=== PATIENT | male | born 1935 | race Caucasian/White ===

== ENCOUNTER → 2018-03-25 | Outpatient (CLI) | payer MEDICARE ==
[~2018-03-25] MED LIST: AMLO5TAB7; AMLO5TAB7 PO; ASP325T PO; ATEN50TA PO; ATOR40TA70 PO; CLN.1T PO; FINA5TAB6 PO; HCT25T PO; HYDR25TA4 PO; LEVO500T69 PO; LISI40TA PO; MULT-35 PO; MULT-608 PO; OMEG1CAP51 PO; OMG1KC PO; PHEN200T27 PO; SIMV40TA2 PO; TAMS0.4C2 PO; TMSL.4C PO
--- NOTE | 2018-03-25 10:01 | Diagnostic Imaging Report ---
CLINICAL INDICATION: Patient with abdominal aortic aneurysm. EXAM: Ultrasound of the abdominal aorta. COMPARISON STUDY: CT Angiogram of the abdomen and pelvis dated 11/07/2017. FINDINGS: The abdominal aorta has irregular wall contour likely from atherosclerotic disease. The maximum AP and transverse dimensions for the proximal and distal abdominal aorta are 2.1 cm x 2.4 cm and 2.4 cm x 2.2 cm, respectively. There is a mid to distal infrarenal abdominal aortic aneurysm which measures 3.7 cm x 3.8 cm (AP x Trans) and measures at least 7 cm in craniocaudal dimensions. Of note, this aneurysm measures 4.3 cm in greatest axial dimension on the comparison CT angiogram. The bilateral common iliac arteries were obscured by bowel gas and not able to be evaluated on this exam. IMPRESSION: Infrarenal mid to distal infrarenal abdominal aortic aneurysm. Dictated by: Dictated on workstation # [id number]
== END ==
LOC: RAD 08:44
PROVIDERS: ATTEND Physician Assistant
DX: I71.4 Abdominal aortic aneurysm, without rupture (principal); I65.23 Occlusion and stenosis of bilateral carotid arteries; I10 Essential (primary) hypertension; E78.2 Mixed hyperlipidemia; I70.1 Atherosclerosis of renal artery
CPT/HCPCS: 76775

== ENCOUNTER → 2018-10-24 | Outpatient (CLI) | payer MEDICARE ==
[~2018-10-24] MED LIST changes: -AMLO5TAB7; -AMLO5TAB7 PO; +AMLO5TAB9; +AMLO5TAB9 PO
== END ==
LOC: CARD 12:54
PROVIDERS: ATTEND Physician Assistant
DX: I71.4 Abdominal aortic aneurysm, without rupture (principal); I65.29 Occlusion and stenosis of unspecified carotid artery; I10 Essential (primary) hypertension; E78.5 Hyperlipidemia, unspecified; I27.20 Pulmonary hypertension, unspecified; I34.0 Nonrheumatic mitral (valve) insufficiency
CPT/HCPCS: 93306

== ENCOUNTER → 2018-10-29 | Outpatient (CLI) | payer MEDICARE ==
[~2018-10-29] VITALS: Ht 190.5 cm; Wt 90.7 kg
[~2018-10-29] MED LIST changes: +CATHETER FLUSH 10 ML SYR IV PRN; +REGADENOSON 0.4 MG/5 ML SYR (LEXISCAN) IV ONE
[2018-10-29 09:14] VITALS: BP 172/118
[2018-10-29 09:15] VITALS: BP 147/77
--- NOTE | 2018-10-29 11:57 | STRESS TEST ---
DATE OF SERVICE: 10/29/2018 LEXISCAN MYOVIEW STRESS TEST REPORT REFERRING PHYSICIAN: Dr. Diop. Baseline heart rate is 89 and baseline blood pressure is 145/94. Baseline EKG is atrial fibrillation with no ischemic changes. In summary, the patient was injected with 10.47 mCi of technetium-99 Myoview and the resting images were obtained. Then, the patient received 0.4 mg of Lexiscan followed by 30.0 mCi of technetium-99 Myoview. Throughout the test, there were no EKG changes. The resting and stress images were reviewed and compared in the short axis, horizontal long axis and vertical long axis views. Review of the images showed diaphragmatic attenuation with typical male pattern with no significant ischemia or infarction. SSS is 1, SDS 1 and TID value 1.01. On the gated images, the left ventricle appeared to be in normal size with normal contractility. Calculated ejection fraction is 52%. CONCLUSION: 1. The patient tolerated the Lexiscan well. 2. Diaphragmatic attenuation with typical male pattern with no significant ischemia or infarction on SPECT images. 3. Normal left ventricular size with normal contractility. Calculated ejection fraction is 52%. Job ID: [id number] DocumentID: [id number] Dictated Date: 10/29/2018 11:25:30 Grease Maker Head Date: 10/29/2018 11:56:43 Dictated By: JEANIE MORENO MD
== END ==
LOC: CARD 07:31
PROVIDERS: ATTEND Physician Assistant
DX: I71.4 Abdominal aortic aneurysm, without rupture (principal); I10 Essential (primary) hypertension; E78.5 Hyperlipidemia, unspecified
CPT/HCPCS: 78452; 93017

== ENCOUNTER → 2019-06-01 | Outpatient (CLI) | payer MEDICARE ==
[~2019-06-01] MED LIST changes: -CATHETER FLUSH 10 ML SYR IV PRN; -REGADENOSON 0.4 MG/5 ML SYR (LEXISCAN) IV ONE
[2019-06-01 14:11] LABS: PROTHROMBIN TIME PATIENT 13.3 SEC (12.2-14.7)
== END ==
LOC: LAB 13:35
PROVIDERS: ATTEND Internal Medicine Cardiovascular Disease
DX: I48.91 Unspecified atrial fibrillation (principal); I71.4 Abdominal aortic aneurysm, without rupture; E78.5 Hyperlipidemia, unspecified; I11.9 Hypertensive heart disease without heart failure
CPT/HCPCS: 36415; 85250; 85270; 85610; 85730

== ENCOUNTER 2019-06-03 07:42 | Outpatient (RCR) | payer MEDICARE ==
[2019-06-24] MEDS ORDERED: ATOR20TA66 PO (07:57)
[2019-06-24] MEDS ORDERED: AMLO5TAB4 PO (07:57)
[2019-06-24] MEDS ORDERED: APIX5TAB PO (07:57)
[2019-06-24] MEDS ORDERED: TMSL.4C PO (07:57)
[2019-06-24] MEDS ORDERED: MULT1TAB69 PO (07:57)
[2019-06-24] MEDS ORDERED: METO50TA7 PO (07:57)
[2019-06-24] MEDS ORDERED: DIPH25TA31 PO (08:32)
[2019-06-24] MEDS ORDERED: DRON400T2 PO (11:09)
== END 2019-09-01 | disposition home or self-care (01) ==
LOC: ONC 07:42
PROVIDERS: ATTEND Internal Medicine Hematology & Oncology
DX: I48.91 Unspecified atrial fibrillation (principal); E78.00 Pure hypercholesterolemia, unspecified; I10 Essential (primary) hypertension; E78.5 Hyperlipidemia, unspecified
CPT/HCPCS: 99214

== ENCOUNTER 2019-06-24 07:06 | Day surgery (SDC) | payer MEDICARE ==
[~2019-06-24] VITALS: Ht 193 cm; Wt 90.9 kg
[2019-06-24] VITALS (9 sets, daily range): BP systolic 130–166; BP diastolic 78–119
[2019-06-24] MEDS ORDERED: LIDOCAINE 2% VISCOUS 15 ML UDC ONE (07:23)
[2019-06-24] MEDS ORDERED: NS IV 1000 ML 1,000 ML ONE (07:23)
[2019-06-24] MEDS ORDERED: NS IV 1000 ML 1,000 ML IV SCH (07:26)
[2019-06-24 07:49] LABS: HEMOGLOBIN 17.5 G/DL (13.3-17.7); MEAN PLATELET VOLUME 11.3 FL (7.4-10.4); RED CELL DISTRIBUTION WIDTH 13.4 % (10.0-14.5); WHITE BLOOD COUNT 6.8 10^3/uL (4.3-11.0)
[2019-06-24] MEDS ORDERED: AMLO5TAB4 PO (07:57)
[2019-06-24] MEDS ORDERED: TMSL.4C PO (07:57)
[2019-06-24] MEDS ORDERED: APIX5TAB PO (07:57)
[2019-06-24] MEDS ORDERED: METO50TA7 PO (07:57)
[2019-06-24] MEDS ORDERED: ATOR20TA66 PO (07:57)
[2019-06-24] MEDS ORDERED: MULT1TAB69 PO (07:57)
[2019-06-24] MEDS ORDERED: LIDOCAINE 2% VISCOUS 15 ML UDC PO ONE (08:00)
[2019-06-24] MEDS ORDERED: proPOfol 200 MG/20 ML (DIPRIVAN) VIAL IV ONE (08:05)
[2019-06-24] MEDS ORDERED: MIDAZOLAM 5 MG/5 ML (VERSED) VIAL ONE (08:05)
[2019-06-24 08:08] LABS: ALBUMIN 4.3 GM/DL (3.2-4.5); BILIRUBIN,TOTAL 1.4 MG/DL (0.1-1.0); CALCIUM 9.6 MG/DL (8.5-10.1); CREATININE SERUM 1.3 MG/DL (0.60-1.30); POTASSIUM 3.8 MMOL/L (3.6-5.0); TOTAL PROTEIN 7.9 GM/DL (6.4-8.2)
--- NOTE | 2019-06-24 08:17 | Diagnostic Imaging Report ---
INDICATION: Atrial fibrillation, evaluation prior to transesophageal echocardiography. TECHNIQUE: Single view chest 7:49 AM. CORRELATION STUDY: 11/07/2017 FINDINGS: The heart size, mediastinal configuration and pulmonary vascularity are within normal limits. Mildly tortuous course of thoracic aorta. The lungs are somewhat hyperinflated but overall are clear with no consolidating infiltrate. There is no significant effusion or pneumothorax. IMPRESSION: 1. Negative for acute abnormality of the chest. Dictated by: Dictated on workstation # [id number]
[2019-06-24] MEDS ORDERED: DIPH25TA31 PO (08:32)
--- NOTE | 2019-06-24 09:37 | NUR ---
SPOKE WITH PT (HE HAD A MED LIST) WELL CALLING [facility] TO COMPLETE THE MED REC. PT'S MED LIST WAS DETAILED AND HE WAS ABLE TO TELL ME HOW/WHEN HE TAKES EACH MED (THE DIRECTIONS AND FILL DATES ARE CURRENT WITH SIM[facility]) THE FOLLOWING ARE FILL DATES: 04-06-2019 LISINOPRIL #90/90DS 04-15-2019 FLOMAX #90/90DS 04-16-2019 AMLODIPINE #90/90DS 04-28-2019 FINASTERIDE #90/90DS 05-21-2019 ATORVASTATIN #90/90DS 05-27-2019 HCTZ #90/90DS\ 06-01-2019 ELIQUIS #60/30DS 06-01-2019 METOPROLOL #60/60DS OTC MEDS: DIPHENHYDRAMINE MTV FISH OIL
[2019-06-24] MEDS ORDERED: APIXABAN 5 MG (ELIQUIS) TABLET PO NR (10:15)
--- NOTE | 2019-06-24 10:24 | Cardiac Procedure Note-CS/ASA ---
Pre-Procedure Note Pre-Op Procedure Note H&P Reviewed The H&P was reviewed, patient examined and no changes noted. Date H&P Reviewed: Jun 24, 2019 Time H&P Reviewed: 08:00 Conscious Sedation Pre-Proced Time 08:00 ASA Score 3 For ASA 3 and 4: Consider anesthesia and medical clearance. Also, for patients with a history of failed moderate sedation consider anesthesia. Airway Lungs Heart ASA score ASA 1: a normal healthy patient ASA 2: a patient with a mild systemic disease (mid diabetes, controlled hypertension, obesity x ASA 3: a patient with a severe systemic disease that limits activity (angina, COPD, prior Myocardial infarction) ASA 4: a patient with an incapacitating disease that is a constant threat to life (CHF, renal failure) ASA 5: a moribund patient not expected to survive 24 hrs. (ruptured aneurysm) ASA 6: a declared brain- patient whose organs are being harvested. For emergent operations, add the letter E after the classification Mallampati Classification Grade 3 Sedation Plan Analgesia, Amnesia, Plan communicated to team members, Discussed options with patient/fam, Discussed risks with patient/fam The patient is an appropriate candidate to undergo the planned procedure, sedation, and anesthesia. The patient immediately re-assessed prior to indication. JEANIE MORENO MD Jun 24, 2019 10:24 POS
--- NOTE | 2019-06-24 10:25 | Cardioversion ---
Cardioversion PROCEDURE PHYSICIAN: Jeanie Coppola DATE OF PROCEDURE: 06/24/19 DIRECT EXTERNAL ELECTRICAL CARDIOVERSION: Indications: Atrial Fibrillation with rapid ventricular rate Preoperative diagnoses: Atrial Fibrillation with rapid ventricular rate Postoperative diagnosis: Sinus rhythm, Successful Electrical Cardioversion History: 84 years old gentleman with paroxysmal atrial fibrillation, scheduled for electrical cardioversion after TANESHA Anesthesia: By Anesthesia services Complications: None Specimen: None Contrast: 0 Flouroscopy: none Procedure Details: The patient was brought the slab worker after informed consent was taken, all the risks and complications were explained including the risk of stroke. Electrical cardioversion was carried out with anesthesia support with propofol. 200 joules of synchronized shock was delivered through external patches which promptly restored sinus rhythm. The patient tolerated the procedure well. Conclusions: Successful electrical cardioversion in terminating atrial fibrillation Final Diagnosis: Paroxysmal atrial fibrillation Palpitation Hypertension Hemophilia JEANIE COPPOLA MD Jun 24, 2019 10:25 POS
[2019-06-24] MEDS ORDERED: LIDOCAINE 1% INJ 20 ML 20 ML VIAL ONE (10:33)
--- NOTE | 2019-06-24 11:00 | NUR ---
ELIQUIS 5MG PO OF HOME MEDICATION GIVEN PER DR. MORENO ORDER.
--- NOTE | 2019-06-24 11:08 | Implantation of Loop Monitor ---
Implant of Loop Monitior IMPLANTATION OF LOOP MONITOR REPORT DATE OF PROCEDURE: 06/24/19 PREOP DIAGNOSIS: paroxysmal atrial fibrillation POSTOP DIAGNOSIS: paroxysmal atrial fibrillation PROCEDURE DETAILS: The patient is a 84 male with history of paroxysmal atrial fibrillation requiring long-term surveillance. Therefore implantable loop recorder was discussed and agreed with the patient. Informed consent was taken. All risks and complications were discussed at length. The patient was draped and prepped in the usual sterile fashion. Local anesthesia was lidocaine, which was given in the substernal area close to the 4th intercostal space. Loop monitor Block[employer]acon serial number [id number] implanted according to the protocol. Steri-Strips were placed at the end of the procedure. There were no complications and the patient tolerated the procedure well. The device was interrogated with a voltage of. ANESTHESIA: Local anesthesia with lidocaine. COMPLICATIONS: None CONTRAST/FLUOROSCOPY: None CONCLUSION: Successful loop recorder implantation with no complication FINAL DIAGNOSIS: Paroxysmal atrial fibrillation Hemophilia Palpitation JEANIE MORENO MD Jun 24, 2019 11:08 POS
[2019-06-24] MEDS ORDERED: DRON400T2 PO (11:09)
[2019-06-24] MEDS ORDERED: LIDOCAINE 1% INJ 20 ML 20 ML VIAL INJ ONE (12:00)
--- NOTE | 2019-06-24 13:22 | Anesthesia-General Post-Op ---
MAC Patient Condition Mental Status/LOC: Same as Preop Cardiovascular: Satisfactory Nausea/Vomiting: Absent Respiratory: Satisfactory Pain: Controlled Complications: Absent Post Op Complications Complications None Follow Up Care/Instructions Patient Instructions None needed. Anesthesiology Discharge Order Discharge Order Patient is doing well, no complaints, stable vital signs, no apparent adverse anesthesia problems. No complications reported per nursing. MANUEL BRADSHAW CRNA Jun 24, 2019 13:22 POS
== END 2019-06-24 11:45 ==
LOC: CATH 07:06
PROVIDERS: ATTEND Internal Medicine Cardiovascular Disease
DX: I48.0 Paroxysmal atrial fibrillation (principal); I65.23 Occlusion and stenosis of bilateral carotid arteries; I11.9 Hypertensive heart disease without heart failure; I77.1 Stricture of artery; I71.4 Abdominal aortic aneurysm, without rupture; I73.9 Peripheral vascular disease, unspecified; E78.5 Hyperlipidemia, unspecified; D66 Hereditary factor VIII deficiency; Z87.891 Personal history of nicotine dependence; Z79.899 Other long term (current) drug therapy; Z79.01 Long term (current) use of anticoagulants; Z80.42 Family history of malignant neoplasm of prostate; Z80.3 Family history of malignant neoplasm of breast
CPT/HCPCS: 33285; 36415; 71045; 80053; 80061; 85027; 85610; 85730; 87081; 92960; 93005; 93312; 93320; 93325

== ENCOUNTER → 2019-07-09 | Day surgery (SDC) | payer MEDICARE ==
[~2019-07-09] VITALS: Ht 90.5 cm; Wt 90.9 kg
[~2019-07-09] MED LIST changes: +AMLO5TAB4 PO; +APIX5TAB PO; +ATOR20TA66 PO; +DIPH25TA31 PO; +DRON400T2 PO; +METO-370 PO; +MIDAZOLAM 5 MG/5 ML (VERSED) VIAL IV ONE; +MIDAZOLAM 5 MG/5 ML (VERSED) VIAL ONE; +MULT1TAB69 PO; +NS IV 1000 ML 1,000 ML IV ONE; +NS IV 1000 ML 1,000 ML ONE; +TAMS0.4C98 PO; +proPOfol 200 MG/20 ML (DIPRIVAN) VIAL IV ONE
[2019-07-09 12:41] VITALS: BP 146/89
[2019-07-09 12:45] VITALS: BP 140/82
[2019-07-09 12:50] VITALS: BP 144/84
[2019-07-09 13:05] VITALS: BP 128/70
--- NOTE | 2019-07-09 13:14 | Cardioversion ---
Cardioversion PROCEDURE PHYSICIAN: Halle Jordan MD DATE OF PROCEDURE: 07/09/19 DIRECT EXTERNAL ELECTRICAL CARDIOVERSION: Indications: Atrial Fibrillation with controlled ventricular rate. Preoperative diagnoses: Atrial Fibrillation with controlled ventricular rate. Postoperative diagnosis: Sinus rhythm, Successful Electrical Cardioversion History: This is a 84-year-old gentleman with history of persistent atrial fibrillation. He had transesophageal echocardiogram assisted cardioversion couple of weeks ago followed by implantable loop recorder. Continues to be in atrial fibrillation. He was started on multaq 400 mg twice a day. He is on uninterrupted Eliquis therapy. Anesthesia: By Anesthesia services Complications: None Specimen: None Contrast: 0 Flouroscopy: none Procedure Details: The patient was brought the slab tripper after informed consent was taken, all the risks and complications were explained including the risk of stroke. Electrical cardioversion was carried out with anesthesia support with propofol. 200 joules of synchronized shock was delivered through external patches which promptly restored sinus rhythm. The patient tolerated the procedure well. While putting the defibrillator pads on the chest we noted that he has moderate bruising in the left chest likely due to the implantable loop recorder. At the site of the implantable loop recorder there is mild hematoma without infection. However the incision site is not well healed, however is not infected either. The cleaned it in a sterile manner and applied new bandage. We will give Keflex 500 mg 3 times a day for 5 days. I will check the wound again on 07/14/2019 in the office. Conclusions: 1.Successful Cardioversion. 2.Continue oral anticoagulation, multaq and rate controlling agent. 3.Follow up in office in 5 days. Halle Jordan MD, [facility] Cardiac Electrophysiology Mohan JORDAN MD Jul 09, 2019 13:14
[2019-07-09 13:20] VITALS: BP 131/74
--- NOTE | 2019-07-09 13:28 | Anesthesia-General Post-Op ---
MAC Patient Condition Mental Status/LOC: Same as Preop Cardiovascular: Satisfactory Nausea/Vomiting: Absent Respiratory: Satisfactory Pain: Controlled Complications: Absent Post Op Complications Complications None Follow Up Care/Instructions Patient Instructions None needed. Anesthesiology Discharge Order Discharge Order Patient is doing well, no complaints, stable vital signs, no apparent adverse anesthesia problems. No complications reported per nursing. MANUEL BRADSHAW CRNA Jul 09, 2019 13:28
[2019-07-09 13:49] VITALS: BP 146/74
--- NOTE | 2019-07-09 13:50 | NUR ---
DRESSING CHANGE DONE X2 ON LINQ SITE DUE TO BLEEDING. DR. LOZANO INSPECTED WOUND. ORDERS TO FOLLOW UP IN OFFICE ON SATURDAY. PATIENT MADE AWARE OF APPOINTMENT. PATIENT ALSO SENT HOME WITH ANTIBIOTIC PRESCRIPTION. PAPER SCRIPT GIVEN. PATIENT AND FAMILY VERBALIZED UNDERSTANDING.
== END ==
LOC: CATH 11:52
PROVIDERS: ATTEND Internal Medicine Interventional Cardiology
DX: I48.19 Other persistent atrial fibrillation (principal); I71.4 Abdominal aortic aneurysm, without rupture; I65.23 Occlusion and stenosis of bilateral carotid arteries; I11.9 Hypertensive heart disease without heart failure; E78.5 Hyperlipidemia, unspecified; I70.1 Atherosclerosis of renal artery; Z79.01 Long term (current) use of anticoagulants; Z79.899 Other long term (current) drug therapy; Z87.891 Personal history of nicotine dependence; Z86.2 Personal history of diseases of the blood and blood-forming organs and certain disorders involving the immune mechanism
CPT/HCPCS: 92960; 93005

== ENCOUNTER → 2021-01-25 | Outpatient (CLI) | payer MEDICARE ==
[~2021-01-25] MED LIST changes: +AMLO-250; +AMLO-250 PO; -AMLO5TAB9; -AMLO5TAB9 PO; -DRON400T2 PO; +DRON400T6 PO; +LISI40TA9 PO; -METO-370 PO; +METO50TA7 PO; -MIDAZOLAM 5 MG/5 ML (VERSED) VIAL IV ONE; -MIDAZOLAM 5 MG/5 ML (VERSED) VIAL ONE; +MULT-567 PO; -MULT1TAB69 PO; -NS IV 1000 ML 1,000 ML IV ONE; -NS IV 1000 ML 1,000 ML ONE; -TAMS0.4C98 PO; -proPOfol 200 MG/20 ML (DIPRIVAN) VIAL IV ONE
[2021-01-25 16:44] LABS: HEMATOCRIT 49 % (40-54); HEMOGLOBIN 16.2 g/dL (13.3-17.7); MEAN CORPUSCULAR HEMOGLOBIN 31 pg (25-34); MEAN CORPUSCULAR HGB CONC 33 g/dL (32-36); MEAN CORPUSCULAR VOLUME 93 fL (80-99); MEAN PLATELET VOLUME 10.3 fL (9.0-12.2); PLATELET COUNT 267 10^3/uL (130-400); WHITE BLOOD COUNT 8.1 10^3/uL (4.3-11.0)
--- NOTE | 2021-01-25 16:49 | Diagnostic Imaging Report ---
INDICATION: Right leg pain. Right leg venous Doppler study was performed in the routine fashion with color flow Doppler and waveform analysis. FINDINGS: The right common femoral vein, superficial femoral vein, popliteal vein and visualized portion of the tibial veins show normal compressibility and venous flow patterns. There is normal augmentation. IMPRESSION: No evidence of deep vein thrombosis of the major veins of the right leg. Dictated by: Dictated on workstation # [id number]
[2021-01-25 17:12] LABS: ERYTHROCYTE SEDIMENTATION RATE 14 MM/HR (0-30)
== END ==
LOC: RAD 15:47
PROVIDERS: ATTEND Nurse Practitioner Family
DX: M79.661 Pain in right lower leg (principal); L53.9 Erythematous condition, unspecified; R22.43 Localized swelling, mass and lump, lower limb, bilateral
CPT/HCPCS: 36415; 84550; 85027; 85652; 86060

== ENCOUNTER → 2021-06-05 | Outpatient (CLI) | payer MEDICARE ==
--- NOTE | 2021-06-05 13:15 | Diagnostic Imaging Report ---
PROCEDURE: CT abdomen and pelvis without contrast. TECHNIQUE: Multiple contiguous axial images were obtained through the abdomen and pelvis without the use of intravenous contrast. Auto Exposure Controls were utilized during the CT exam to meet ALARA standards for radiation dose reduction. INDICATION: Hematuria. COMPARISON: Comparison is made with prior CT from 11/07/2017. FINDINGS: The lung bases are clear. The liver and gallbladder are unremarkable. There is no biliary ductal dilatation. Pancreas and spleen are unremarkable. No adrenal mass is detected. There is a cyst in the upper pole left kidney measuring 4.9 cm transverse. This compares with 4.3 cm on prior exam. No renal calculi or hydronephrosis is seen. Aorta is aneurysmal. This has increased since the prior study now measuring 4.8 cm in AP diameter compared with 4.4 cm on prior. No perianeurysmal fluid collection is identified to suggest leakage or rupture. Bowel loops are normal in caliber. No free fluid or fluid collection. The bladder is unremarkable. Prostate is unremarkable. Bony structures are nonacute. IMPRESSION: 1. Abdominal aortic aneurysm, increasing in size since the prior study from 2018. No leakage or rupture is seen. 2. Slight increase in size of left renal cyst. 3. No evidence of urinary tract calculi or obstruction. Dictated by: Dictated on workstation # [id number]
== END ==
LOC: RAD 11:15
PROVIDERS: ATTEND Urology
DX: I71.4 Abdominal aortic aneurysm, without rupture (principal); N28.1 Cyst of kidney, acquired
CPT/HCPCS: 74176

== ENCOUNTER → 2021-09-28 | Outpatient (CLI) | payer MEDICARE | LOC: CARD 12:00 | PROVIDERS: ATTEND Physician Assistant | DX: I11.9 Hypertensive heart disease without heart failure (principal); I08.3 Combined rheumatic disorders of mitral, aortic and tricuspid valves | CPT/HCPCS: 93306 ==

== ENCOUNTER 2022-04-06 07:49 | Emergency (ER) | payer MEDICARE ==
[~2022-04-06] VITALS: Ht 193 cm; Wt 90.7 kg
--- NOTE | 2022-04-06 08:52 | ED General ---
General Chief Complaint: Upper Extremity Stated Complaint: R NECK/SHOULDER PAIN Nursing Triage Note: PT AMBULATE TO ROOM 02 WITH C/O RIGHT SHOULDER AND RIGHT NECK PAIN. PT REPORTS SLEEPING WRONG AND WAKING WITH PAIN. PT STATES THAT HE HAS SHOOTING PAIN WHEN HE CHEWS AND TURNS HIS HEAD. PT STATES HE HAS NOT CONTACTED HIS PCP FOR THIS C/O. PT STATES HE TAKE 500MG TYLENOL Q4H THAT RELEIVES THE PAIN. Source of Information: Patient Exam Limitations: No Limitations (KIM JEAN MED STUDENT) History of Present Illness Date Seen by Provider: Apr 06, 2022 Time Seen by Provider: 08:30 Initial Comments Duncan Stephenson is an 87 yo male who presents for right neck pain. Pt has hx of HTN, Afib with ICM placement 3 yrs ago, Carotid artery occlusion in 1997, high cholesterol, BPH with TURP and TIA x2 in 2004. Pt states three days ago he woke up with right neck pain that radiates to the shoulder. He thought he may have slept on it wrong, but the pain has been intermittent for the last three days. Swallowing or moving his neck to the right sometimes makes the pain worse, which he rates a 6/10. Pt reports one day ago he started taking Tylenol 500mg 4 times daily which helps, but when it wears off the pain comes back. Pt denies ever having pain like this before and denies any muscle sprains to compare the pain to. Pt denies fever, chills, recent illness, sick contacts, congestion, ear pain, [place], blurry vision, dizziness, CP, SOA, cough, dysuria, frequency, N/V/D, abdominal pain, weakness or numbness in extremities. Pt reports he just saw Dr. Coppola a few weeks ago and they did a carotid ultrasound that showed no stenosis. He has hx of carotid occlusion in 1997. He states this pain does not feel like it did when he had his carotid occlusion. 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 On exam, the right sided neck pain is not reproducible with palpation or shoulder ROM exercises. Pt last took Tylenol at 0700 this morning. Timing/Duration: 3-4 Days Modifying Factors: worse with Eating; improves with Medication (tylenol); worse with Movement Associated Systoms: Denies Symptoms (KIM JEAN MED STUDENT) Allergies and Home Medications Allergies Coded Allergies: No Known Drug Allergies (Unverified , 05/18/10) Patient Home Medication List Home Medication List Reviewed: Yes (ASHLEY CUELLAR MD) Amlodipine Besylate (Norvasc) 5 Mg Tablet, 5 MG PO HS, (Reported) Entered as Reported by: KAMLA DALY on 06/24/19756 Apixaban (Eliquis) 5 Mg Tablet, 5 MG PO BID, (Reported) Entered as Reported by: KAMLA DALY on 06/24/19756 Atorvastatin Calcium (Atorvastatin Calcium) 20 Mg Tablet, 20 MG PO HS, (Reported) Entered as Reported by: KAMLA DALY on 06/24/19756 Diphenhydramine HCl (Diphenhydramine HCl) 25 Mg Tablet, 25 MG PO HS PRN for SLEEP, (Reported) Entered as Reported by: KAMLA DALY on 06/24/19 0832 Dronedarone HCl (Multaq) 400 Mg Tablet, 400 MG PO BID Prescribed by: JEANIE COPPOLA on 06/24/19 1109 Finasteride (Finasteride) 5 Mg Tablet, 5 MG PO DAILY, (Reported) Entered as Reported by: CAS JACOBS on 11/07/17 0013 Hydrochlorothiazide (Hydrochlorothiazide) 25 Mg Tablet, 25 MG PO DAILY, (Reported) Entered as Reported by: KATI GRAYSON on 11/07/17 0838 Lisinopril (Lisinopril) 40 Mg Tablet, 40 MG PO HS, (Reported) Entered as Reported by: KATI GRAYSON on 11/07/17 0838 Metoprolol Succinate (Metoprolol Succinate) 50 Mg Tab.er.24h, 50 MG PO DAILY, (Reported) Entered as Reported by: KAMLA DALY on 06/24/19756 Multivitamin (Multivitamins) 1 Each Tablet, 1 EACH PO DAILY, (Reported) Entered as Reported by: KAMLA DALY on 06/24/19756 [place] 3 Polyunsat Fatty Acids (Fish Oil 1,000 mg Capsule) 1,000 Mg Cap, 1,000 MG PO BID, (Reported) Entered as Reported by: KATI GRAYSON on 11/07/17 0841 Tamsulosin HCl (Flomax) 0.4 Mg Cap, 0.4 MG PO HS, (Reported) Entered as Reported by: KAMLA DALY on 06/24/19 0757 Review of Systems Review of Systems Constitutional: No chills, No dizziness, No fever EENTM: No blurred vision, No double vision, No vision loss, No nose congestion, No throat pain, No throat swelling Respiratory: No cough, No short of breath Cardiovascular: No chest pain, No palpitations Gastrointestinal: No abdominal pain, No constipation, No diarrhea, No nausea, No vomiting Genitourinary: No dysuria, No frequency, No hesitancy, No nocturia Musculoskeletal: muscle pain (right neck pain) Skin: No lesions, No lumps, No rash Psychiatric/Neurological: Denies Headache, Denies Numbness, Denies Paresthesia, Denies Weakness Hematologic/Lymphatic: No Symptoms Reported Immunological/Allergic: no symptoms reported (KIM JEAN [employer] STUDENT) Past Msskfjo-Wxputx-Slbqcn Hx Patient Social History Tobacco Use?: No Smoking Status: Never a Smoker Smokeless Tobacco Frequency: Never a User Use of E-Cig and/or Vaping dev: No Use of E-Cig and/or Vaping [place]: Never a User Substance use?: No Alcohol Use?: Yes Alcohol Frequency: Once in a while Pt feels they are or have been: No (KIM JEAN [employer] STUDENT) Immunizations Up To Date COVID19 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[employer] (KIM JEAN [employer] VADIM) Seasonal Allergies Seasonal Allergies: No (KIM JEAN) Past Medical History Surgeries: Yes ( CYSTOSCOPIES, COLONOSCOPIES) Abdominal, Cardiac, Transurethral Resection Respiratory: No Cardiac: Yes (CAROTID DISEASE) Atrial Fibrillation, Hypertension Neurological: No (TIA X2 2005) TIA Reproductive Disorders: No Sexually Transmitted Disease: No Benign Prostatic Hyperpl, Bladder Infection, Kidney Stones Gastrointestinal: Yes (HX COLON POLYPS) Abdominal Hernia, Polyps Musculoskeletal: Yes (ARTHRITIS) Chronic Back Pain Endocrine: No Cancer: No Psychosocial: No Integumentary: No 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 0.0oz. 90.644284kb; 24.00 BMI Method:Stated General Appearance: No Apparent Distress, WD/WN Eyes: Bilateral Eye Normal Inspection, Bilateral Eye PERRL, Bilateral Eye EOMI HEENT: PERRL/EOMI Neck: Full Range of Motion, Normal Inspection, Non Tender, Other (No tenderness to palpation on right side, but posterior scalene is restricted on the right) Respiratory: Chest Non Tender, Lungs Clear, Normal Breath Sounds Cardiovascular: No Murmur, Irregularly Irregular Gastrointestinal: Normal Bowel Sounds, Non Tender, Soft Back: Normal Inspection, No Vertebral Tenderness Extremity: Normal Range of Motion, Non Tender, No Pedal Edema Neurologic/Psychiatric: Alert, Oriented x3, Normal Mood/Affect Skin: Normal Color, Warm/Dry Lymphatic: No Adenopathy (KIM JEAN MED STUDENT) Progress/Results/Core Measures Suspected Sepsis SIRS Temperature: Pulse: 75 Respiratory Rate: 17 Blood Pressure 184 /105 Mean: 131 (KIM JEAN MED STUDENT) Results/Orders My Orders Orders - ASHLEY CUELLAR MD Ekg Tracing (04/06/22 08:03) (ASHLEY CUELLAR MD) Vital Signs/I&O 04/06/22 08:12 Temp 36.0 Pulse 75 Resp 17 B/P (MAP) 184/105 (131) O2 Delivery Room Air (ASHLEY CUELLAR MD) Vital Signs/I&O Capillary Refill : Less Than 3 Seconds (KIM JEAN MED STUDENT) Blood Pressure Mean: 131 Progress Note : Time: 09:34 Progress Note 87-year-old male chief complaint of right lateral neck pain, right supraclavicular pain and a little pain in the right submandibular area. Onset 3 or 4 days ago. Taking Tylenol for symptoms with moderate relief. Denies any shortness of breath, chest pain or palpitations. No fevers or chills, no productive cough. Not reproducible with movement of the head neck or right upper extremity. No overlying rashes, lesions, swelling. Not reproducible on direct palpation. Patient had taken Tylenol at 7 AM prior to arrival. He does endorse a little difficulty occasionally with swallowing. No voice changes/hoarseness. History of bilateral carotid endarterectomy in 1997 with a recent evaluation by Dr. Coppola that showed clear carotids. No neurovascular complaints to the right upper extremity. Basically his exam is completely benign. Vital signs are stable. Recommend follow-up with Dr. Miranda, his PCP next week. Also recommended continuing Tylen ol, moist heat, [id number]-col-muxnqla Voltaren gel or Biofreeze/IcyHot. Patient seems happy with this plan of care. All questions are sought and answered. Patient is stable for discharge (ASHLEY CUELLAR MD) ECG Initial ECG Impression Date: Apr 06, 2022 Initial ECG Impression Time: 08:32 Initial ECG Rate: 83 Initial ECG Rhythm: A Fib/Flutter Initial ECG Impression: Atrial Fibrillation (ASHLEY CUELLAR MD) Departure Impression Primary Impression: Neck pain on right side Disposition: 01 HOME, SELF-CARE Condition: Stable Departure-Patient Inst. Decision time for Depature: 09:38 (ASHLEY CUELLAR MD) Referrals: DUNCAN MIRANDA MD (PCP/Family) Primary Care Physician Patient Instructions: Muscle Strain (DC) Add. Discharge Instructions: Continue tylenol 500mg 4 times per day as needed. Do not exceed 3000mg per day. Use diclofenac(Voltaren) gel or Biofreeze on your neck/shoulder to relieve pain. This can be purchased at most drug stores. Call Dr. Miranda's office and get an appointment with him next week if symptoms are persisting. If you develop blurry vision, dizziness, lightheadedness or pass out please return to the ER for evaluation. Drink plenty of water to stay well hydrated. Verification and Attestation of Medical Student E/M Service A medical student performed and documented this service in my presence. I reviewed and verified all information documented by the medical student and made modifications to such information, when appropriate. I personally performed the physical exam and medical decision making. Ashley Cuellar, Apr 06, 2022,09:39 (ASHLEY CUELLAR MD) KIM JEAN MED STUDENT Apr 06, 2022 08:52 ASHLEY CUELLAR MD Apr 06, 2022 09:39
[2022-04-06 09:51] VITALS: BP 154/73
== END 2022-04-06 09:51 | disposition home or self-care (01) ==
LOC: EDUNIT# 07:49 → ER 07:50
DX: M54.2 Cervicalgia (principal)
CPT/HCPCS: 93005

== ENCOUNTER → 2022-04-09 | Outpatient (CLI) | payer MEDICARE ==
--- NOTE | 2022-04-09 13:11 | Diagnostic Imaging Report ---
PROCEDURE: CT head and CT cervical spine without contrast. TECHNIQUE: Multiple contiguous axial images were obtained through the brain and cervical spine without the use of intravenous contrast. Sagittal and coronal reformations through the cervical spine were then performed. Auto Exposure Controls were utilized during the CT exam to meet ALARA standards for radiation dose reduction. INDICATION: Fall with head and neck injury. 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 Ventricles and sulci are prominent consistent with cerebral atrophy. No sulcal effacement is identified. There is no midline shift. No acute intra-axial or extra-axial hemorrhage is detected. Cisterns are patent. Visualized paranasal sinuses are clear apart from small amount of fluid in the left maxillary sinus. IMPRESSION: 1. Chronic changes left frontal lobe. No acute intracranial process is identified. CT CERVICAL SPINE: There is some straightening of the normal cervical lordotic curvature. 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 Prevertebral tissues are within normal limits. Odontoid appears intact. No fractures are seen. IMPRESSION: Cervical spondylosis. No acute bony abnormality is detected. Dictated by: Dictated on workstation # [id number]
== END ==
LOC: RAD 12:30
PROVIDERS: ATTEND Nurse Practitioner Family
DX: M47.812 Spondylosis without myelopathy or radiculopathy, cervical region (principal); S09.90XA Unspecified injury of head, initial encounter; S19.9XXA Unspecified injury of neck, initial encounter; W19.XXXA Unspecified fall, initial encounter
CPT/HCPCS: 70450; 72125

== ENCOUNTER → 2022-11-05 | Outpatient (CLI) | payer MEDICARE ==
[~2022-11-05] MED LIST changes: +IOHEXOL 350 MG/ML 100 ML (OMNIPAQUE 350) VIAL IV ONE; +NS 100 ML (IVPB) BAG IV ONE
[2022-11-05 08:45] LABS: CREATININE SERUM 1.02 MG/DL (0.60-1.30)
--- NOTE | 2022-11-05 12:16 | Diagnostic Imaging Report ---
PROCEDURE: CT chest with contrast only. TECHNIQUE: Multiple contiguous axial images were obtained through the chest after administration of intravenous contrast. Auto Exposure Controls were utilized during the CT exam to meet ALARA standards for radiation dose reduction. INDICATION: Solitary pulmonary nodule. FINDINGS: Loop recorder within the anterior left chest. No pathologically enlarged lymph nodes within the chest. Moderate scattered vascular calcifications, including the coronary arteries. No aneurysmal dilatation or dissection and the heart is mildly enlarged. No significant pericardial effusion. Minimal secretions within the trachea. No pneumothorax. 0.6 cm left lower lobe pulmonary nodule, not significantly changed from the prior exam of 2018. 0.6 cm sub-solid subpleural right lower lobe pulmonary nodule. 2.1 cm pleural-based groundglass right lower lobe pulmonary nodule. Several additional sub-zero 0.6 cm subpleural pulmonary nodules are present, particularly within the left upper lobe. Left renal cyst. 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 Increasing soft tissue fullness is noted within the body of the pancreas measuring 5 this is potentially associated with ductal dilatation within the distal tail of the pancreas. Overall appearance appears to be a change from prior examination. Scattered osseous degenerative changes without acute osseous abnormality. IMPRESSION: Developing focal soft tissue prominence involving body of the pancreas with pancreatic ductal dilatation suggesting within tail of the pancreas. This may relate to a developing pancreatic mass lesion. Recommend a dedicated CT of the abdomen with contrast for further evaluation. Bilateral pulmonary nodules as described above. These are indeterminate. One within the left lower lobe is unchanged since 2018 and benign. Given the other pulmonary nodules, a follow-up CT of the chest recommended in 6 months. Scattered vascular calcifications, including significant calcifications within the coronary arteries. Aneurysmal dilatation of the abdominal aorta, appearing similar to the prior CT. Additional findings as above. Dictated by: Dictated on workstation # [id number]
== END ==
LOC: RAD 08:03
PROVIDERS: ATTEND Internal Medicine
DX: I71.40 Abdominal aortic aneurysm, without rupture, unspecified (principal); I25.10 Atherosclerotic heart disease of native coronary artery without angina pectoris; K86.89 Other specified diseases of pancreas; R91.8 Other nonspecific abnormal finding of lung field
CPT/HCPCS: 36415; 71260; 82565; 84520

== ENCOUNTER → 2022-11-22 | Outpatient (CLI) | payer MEDICARE ==
[~2022-11-22] MED LIST changes: +GADOTERATE 0.5 MMOL/ML (CLARISCAN) 20 ML VIAL IV ONE; -IOHEXOL 350 MG/ML 100 ML (OMNIPAQUE 350) VIAL IV ONE; -NS 100 ML (IVPB) BAG IV ONE
--- NOTE | 2022-11-22 14:08 | Diagnostic Imaging Report ---
EXAMINATION: MRI of the abdomen with and without contrast. TECHNIQUE: Multiplanar, multisequence MR images of the abdomen were obtained with and without intravenous contrast. HISTORY: Pancreatic mass. COMPARISON: 11/05/2022. FINDINGS: Liver: The liver is normal in signal and smooth in contour. There is no focal hepatic mass. The portal and hepatic veins are patent. Gallbladder and Bile Ducts: There is no intrahepatic or extrahepatic bile duct dilation. There are no filling defects in the gallbladder or common bile duct. Pancreas: Within the area seen on prior CT of the chest, there is an ill-defined area of increased fullness seen within the pancreatic tail measuring up to 6.5 cm in total length. This area has increased in size from prior CT of 06/05/2021. Upstream from the location, there is pancreatic ductal dilatation and irregularity suggesting some obstruction of the duct. The lesion-like appearance does demonstrate subtle hypoenhancement relative to the background pancreas. Kidneys: There is a right renal cyst which requires no follow-up. No hydronephrosis. Adrenal glands: There is no adrenal gland nodule or thickening. Spleen: The spleen is normal in size without focal lesion. Lymph Nodes: There is no suspicious lymphadenopathy. Other: There is no ascites. IMPRESSION: 1. A 6.5 cm mass-like lesion of increased fullness within the pancreatic tail with upstream ductal dilatation and irregularity which is highly concerning for neoplastic process. Consider further evaluation with EUS with biopsy for more definitive characterization. Dictated by: Dictated on workstation # [id number]
== END ==
LOC: RAD 12:00
PROVIDERS: ATTEND Internal Medicine
DX: K86.9 Disease of pancreas, unspecified (principal)
CPT/HCPCS: 74183